=== PATIENT | male | born 1950 | race Caucasian/White ===

== ENCOUNTER 2021-04-27 18:49 | Emergency (ER) | payer OTHER ==
[~2021-04-27] VITALS: Ht 167.6 cm; Wt 78.2 kg
[2021-04-27] MEDS ORDERED: HYDROCODONE/ACETAMINOPHEN 10-325 MG TABLET PO ONE (20:15)
[2021-04-27 21:46] VITALS: BP 130/69
== END 2021-04-27 21:44 | disposition home or self-care (01) ==
LOC: EMS 18:49
DX: S52.502A Unspecified fracture of the lower end of left radius, initial encounter for closed fracture (principal); F17.210 Nicotine dependence, cigarettes, uncomplicated; W01.0XXA Fall on same level from slipping, tripping and stumbling without subsequent striking against object, initial encounter; Y93.89 Activity, other specified; Y92.89 Other specified places as the place of occurrence of the external cause; Y99.8 Other external cause status
CPT/HCPCS: 99284; 73090-TC; 73110-TC; Z7502; Z7610